=== PATIENT | female | born 1990 | race African-American/Black ===

== ENCOUNTER 2017-09-17 19:09 | Emergency (ER) | payer SELFPAY ==
[~2017-09-17] VITALS: Ht 180.3 cm; Wt 170.0 kg
[~2017-09-17 19:09] MED LIST: NAPROXEN; NO MEDS
[2017-09-17 19:16] VITALS: BP 164/94
[2017-09-17] MEDS ORDERED: FLUORESCEIN SODIUM 1MG/STRIP BOTHEYE ONE (19:45)
[2017-09-17] MEDS ORDERED: TETRACAINE 0.5% OPHTH DROPS 4ML BOTHEYE ONE (20:00)
[2017-09-17] MEDS ORDERED: FLUORESCEIN SODIUM 1MG/STRIP BOTHEYE NR (20:30)
== END 2017-09-17 22:27 | disposition home or self-care (01) ==
LOC: ER 19:26
DX: H57.11 Ocular pain, right eye (principal)
CPT/HCPCS: 99283

== ENCOUNTER 2017-11-08 17:58 | Emergency (ER) | payer SELFPAY ==
[~2017-11-08] VITALS: Ht 180.3 cm; Wt 150.0 kg
[2017-11-08 22:25] VITALS: BP 140/72
== END 2017-11-08 23:15 | disposition home or self-care (01) ==
LOC: ER 19:16
DX: J06.9 Acute upper respiratory infection, unspecified (principal); R11.10 Vomiting, unspecified
CPT/HCPCS: 87804; 99284

== ENCOUNTER 2020-04-23 13:58 | Inpatient (IN) | payer MEDICAID ==
[~2020-04-23] VITALS: Ht 180.3 cm; Wt 161.5 kg
[2020-04-23 16:13] LABS: BASOPHILS % 0.9 % (0.0-2.0); EOSINOPHILS % 0.7 % (0.0-5.0); HEMATOCRIT. 43.3 % (36.0-48.0); HEMOGLOBIN. 14.4 g/dL (12.0-16.0); LYMPHOCYTES % 29.4 % (20.0-50.0); MEAN CORPUSCULAR HEMOGLOBIN 27.9 pg (28.0-32.0); MEAN CORPUSCULAR VOLUME 84.1 fL (81.0-99.0); MONOCYTES % 6.8 % (2.0-8.0); NEUTROPHILS % 62.2 % (40.0-76.0); PLATELET 266 x1000/uL (130-400); RED BLOOD CELL COUNT 5.15 mill/uL (4.2-5.4); RED CELL DISTRIBUTION WIDTH 14.4 % (11.6-14.6)
[2020-04-23 16:21] LABS: CHLORIDE 108 mEq/L (98-107)
[2020-04-23 17:11] LABS: CLARITY URINE CLEAR (CLEAR); COLOR URINE YELLOW (YELLOW); KETONES URINE NEGATIVE (NEGATIVE); LEUKOCYTE ESTERASE URINE 2+ (NEGATIVE); NITRITE URINE NEGATIVE (NEGATIVE); OCCULT BLOOD URINE NEGATIVE (NEGATIVE); PROTEIN URINE NEGATIVE (NEGATIVE); SPECIFIC GRAVITY URINE 1.023 (1.005-1.030); UROBILINOGEN URINE 0.2 E.U./dL (0.2-1.0)
[2020-04-23 17:18] LABS: *AMPHETAMINES SCREEN URINE NEGATIVE (NEGATIVE); *BARBITURATES SCREEN URINE NEGATIVE (NEGATIVE); CANNABINOID URINE SCREEN NEGATIVE (NEGATIVE); PHENCYCLIDINE URINE SCREEN NEGATIVE (NEGATIVE)
[2020-04-23 17:19] LABS: *BENZODIAZEPINES SCREEN URINE NEGATIVE (NEGATIVE); *COCAINE SCREEN URINE NEGATIVE (NEGATIVE); METHADONE URINE SCREEN NEGATIVE (NEGATIVE); OPIATES URINE SCREEN NEGATIVE (NEGATIVE)
[2020-04-23] MEDS ORDERED: NITROFURANTOIN 100MG M/M CAPSULE PO ONE (18:00)
[2020-04-23 23:15] VITALS: BP 172/96
[2020-04-24] VITALS: BP 172/96
[2020-04-24] MEDS ORDERED: HYDRALAZINE 20MG/ML VIAL IV PRN (00:45)
[2020-04-24] MEDS ORDERED: ALPRAZOLAM 0.25 MG TABLET PO PRN (00:45)
[2020-04-24] MEDS ORDERED: ACETAMINOPHEN 325MG TABLET PO PRN (00:45)
[2020-04-24] MEDS ORDERED: NON FORMULARY PATIENT HOME MED XX SCH (01:00)
[2020-04-24 04:00] VITALS: BP 150/86
[2020-04-24 07:36] LABS: CHLORIDE 109 mEq/L (98-107)
[2020-04-24 07:41] LABS: BASOPHILS % 0.3 % (0.0-2.0); EOSINOPHILS % 1.3 % (0.0-5.0); HEMATOCRIT. 39.6 % (36.0-48.0); LYMPHOCYTES % 34.9 % (20.0-50.0); MEAN CORPUSCULAR HEMOGLOBIN 27.5 pg (28.0-32.0); MONOCYTES % 9.1 % (2.0-8.0); NEUTROPHILS % 54.4 % (40.0-76.0); PLATELET 239 x1000/uL (130-400); RED BLOOD CELL COUNT 4.71 mill/uL (4.2-5.4); RED CELL DISTRIBUTION WIDTH 14.1 % (11.6-14.6)
[2020-04-24 08:00] VITALS: BP 144/98
[2020-04-24 08:02] LABS: LDL CHOLESTEROL 100 mg/dL (5-100)
[2020-04-24 08:04] LABS: HDL CHOLESTEROL 32 mg/dL (40-59)
[2020-04-24] MEDS ORDERED: ENOXAPARIN 40MG/0.4ML SYR SUBCUT SCH (09:00)
[2020-04-24] MEDS ORDERED: ASPIRIN 81MG EC TABLET PO SCH (09:00)
[2020-04-24] MEDS ORDERED: LEVOFLOXACIN 500MG TABLET PO SCH (11:00)
[2020-04-24 12:00] VITALS: BP 142/76
[2020-04-24] MEDS ORDERED: POTASSIUM CHLORIDE 20MEQ TABLET SR PO NR (13:00)
[2020-04-24 16:00] VITALS: BP 127/60
[2020-04-24] MEDS ORDERED: LOSARTAN POTASSIUM 50 MG TABLET PO SCH (16:30)
[2020-04-24 16:52] VITALS: BP 127/60
== END 2020-04-24 18:23 | disposition home or self-care (01) | DRG 201 ==
LOC: ER 13:58 → EDBEDREQ 18:54 → EDBEDREQTM 18:54 → 6WST 19:09 → EDBEDREQTM 19:12 → EDBEDREQ 19:12 → ENRESERV 22:37
PROVIDERS: ADMIT Internal Medicine; ATTEND Internal Medicine
DX: R00.1 Bradycardia, unspecified (principal); E66.01 Morbid (severe) obesity due to excess calories; R00.0 Tachycardia, unspecified; E86.0 Dehydration; E87.6 Hypokalemia; I10 Essential (primary) hypertension; R94.6 Abnormal results of thyroid function studies; E03.9 Hypothyroidism, unspecified; Z68.42 Body mass index [BMI] 45.0-49.9, adult
CPT/HCPCS: 36415; 71045; 80053; 80061; 80305; 81003; 83880; 84436; 84443; 84484; 85025; 85651; 86141; 93005; 96374; 99285; J0360; J1650

== ENCOUNTER 2020-04-29 05:15 | Emergency (ER) | payer MEDICAID ==
[~2020-04-29] VITALS: Ht 177.8 cm; Wt 165.0 kg
[2020-04-29 05:24] VITALS: BP 148/100
== END 2020-04-29 09:15 | disposition home or self-care (01) ==
LOC: ER 05:15
DX: F41.9 Anxiety disorder, unspecified (principal); I10 Essential (primary) hypertension; K21.9 Gastro-esophageal reflux disease without esophagitis
CPT/HCPCS: 99281